=== PATIENT | male | born 1985 | race Caucasian/White ===

== ENCOUNTER → 2022-07-01 | Emergency (ER) | payer SELFPAY ==
[~2022-07-01] VITALS: Ht 182.9 cm; Wt 97.5 kg
[2022-07-01 18:13] VITALS: BP 153/99
--- NOTE | 2022-07-01 19:05 | NUR ---
Patient eloped from facility. ER MD notified. Patient left without being seen by ER Physician
== END | disposition left against medical advice (07) ==
LOC: ER 18:11
DX: Z53.21 Procedure and treatment not carried out due to patient leaving prior to being seen by health care provider (principal); G89.29 Other chronic pain; M54.9 Dorsalgia, unspecified; M25.559 Pain in unspecified hip; M25.569 Pain in unspecified knee; I10 Essential (primary) hypertension
CPT/HCPCS: A6403